=== PATIENT | male | born 1990 | race Caucasian/White ===

== ENCOUNTER 2020-03-31 16:48 | Emergency (ER) | payer OTHER ==
[~2020-03-31] VITALS: Ht 185.4 cm; Wt 84.1 kg
[2020-03-31 16:49] VITALS: TEMP 98.4
[2020-03-31 18:06] VITALS: BP 114/57; PULSE 49
== END 2020-03-31 18:18 | disposition home or self-care (01) ==
LOC: COL.ER 16:48
DX: S61.216A Laceration without foreign body of right little finger without damage to nail, initial encounter (principal); W25.XXXA Contact with sharp glass, initial encounter; Z88.1 Allergy status to other antibiotic agents

== ENCOUNTER → 2020-04-10 | Outpatient (CLI) | payer OTHER ==
[2020-04-10 18:50] VITALS: BP 112/68; PULSE 57; TEMP 99.5
== END ==
LOC: COL.ER 18:43
DX: Z48.02 Encounter for removal of sutures (principal)